=== PATIENT | female | born 1995 | race American Indian/Alaskan Native ===

== ENCOUNTER 2016-12-26 14:50 | Emergency (ER) | payer MEDICAID ==
[2016-12-26 15:48] LABS: Basophils % (Auto) 0.8 % (0.0-1.8); Eosinophils % (Auto) 0.5 % (0.0-4.3); Hematocrit 33.3 % (30.3-42.9); Hemoglobin 11.1 gm/dl (10.1-14.3); Mean Corpuscular HGB Conc 33 % (30-34); Mean Corpuscular Hemoglobin 32 pg (28-32); Mean Corpuscular Volume 95 fl (79-97); Platelet Count 295 K/mm3 (140-440); Red Blood Count 3.51 M/mm3 (3.65-5.03); Red Cell Distribution Width 14.3 % (13.2-15.2); White Blood Count 12.6 K/mm3 (4.5-11.0)
[2016-12-26 16:03] LABS: Alanine Aminotransferase 11 units/L (7-56); Albumin 3.8 g/dL (3.9-5); Albumin/Globulin Ratio 1.2 %; Alkaline Phosphatase 35 units/L (35-129); Anion Gap 17 mmol/L; Bilirubin,Total 0.2 mg/dL (0.1-1.2); Blood Urea Nitrogen 7 mg/dL (7-17); Calcium 8.8 mg/dL (8.4-10.2); Carbon Dioxide 23 mmol/L (22-30); Chloride 101.4 mmol/L (98-107); Glucose 91 mg/dL (65-100); Lipase 35 units/L (13-60); Sodium 137 mmol/L (137-145); Total Protein 6.9 g/dL (6.3-8.2)
--- NOTE | 2016-12-26 17:07 | Emergency Department Report ---
ED Abdominal Pain HPI - General Chief Complaint: Abdominal Pain Stated Complaint: URINATION PAIN/12WKS Time Seen by Provider: 12/26/16 16:59 Source: patient Mode of arrival: Ambulatory Limitations: No Limitations - History of Present Illness Initial Comments: Pt reports pelvic cramping, dysuria, and vaginal discharge x 2 weeks. Reports she is 12 weeks . Denies fevers, vaginal bleeding. MD Complaint: abdominal pain -: Gradual, week(s) (2) Location: suprapubic Severity: mild Quality: cramping Consistency: constant Improves With: nothing Worsens With: nothing Associated Symptoms: denies other symptoms - Related Data LMP Date: 09/27/16 Previous Rx's Medication Instructions Recorded Last Taken Type Vit No.130/Iron/FA 1 each PO QDAY #30 tablet 07/21/16 Unknown Rx [ Tablet] metroNIDAZOLE [Flagyl] 500 mg PO Q12HR #14 tab 12/26/16 Unknown Rx Allergies Allergy/AdvReac Type Severity Reaction Status Date / Time No Known Allergies Allergy Unverified 11/04/14 13:36 ED Review of Systems ROS: Stated complaint: URINATION PAIN/12WKS Other details as noted in HPI Comment: All other systems reviewed and negative Constitutional: denies: chills, fever Eyes: denies: eye pain, eye discharge, vision change ENT: denies: ear pain, throat pain Respiratory: denies: cough, shortness of breath, wheezing Cardiovascular: denies: chest pain, palpitations Endocrine: no symptoms reported Gastrointestinal: abdominal pain. denies: nausea, diarrhea Genitourinary: dysuria, discharge. denies: urgency Musculoskeletal: denies: back pain, joint swelling, arthralgia Skin: denies: rash, lesions Neurological: denies: headache, weakness, paresthesias Psychiatric: denies: anxiety, depression Hematological/Lymphatic: denies: easy bleeding, easy bruising ED Past Medical Hx - Social History Smoking Status: Never Smoker Substance Use Type: Alcohol - Medications Home Medications: Home Medications Medication Instructions Recorded Confirmed Last Taken Type Vit No.130/Iron/FA 1 each PO QDAY #30 tablet 07/21/16 Unknown Rx [ Tablet] metroNIDAZOLE [Flagyl] 500 mg PO Q12HR #14 tab 12/26/16 Unknown Rx ED Physical Exam - General Limitations: No Limitations General appearance: alert, in no apparent distress - Head Head exam: Present: atraumatic, normocephalic - Eye Eye exam: Present: normal appearance - ENT ENT exam: Present: mucous membranes moist - Neck Neck exam: Present: normal inspection - Respiratory Respiratory exam: Present: normal lung sounds bilaterally. Absent: respiratory distress - Cardiovascular Cardiovascular Exam: Present: regular rate, normal rhythm. Absent: systolic murmur, diastolic murmur, rubs, gallop - GI/Abdominal GI/Abdominal exam: Present: soft, normal bowel sounds. Absent: distended, tenderness, guarding, rebound - External exam: Present: normal external exam Speculum exam: Present: vaginal discharge, cervical discharge. Absent: vaginal bleeding Bi-manual exam: Present: normal bi-manual exam, other (chaperoned by Harmony MUNOZ ) . Absent: cervical motion tendernes, adnexal tenderness - Extremities Exam Extremities exam: Present: normal inspection - Back Exam Back exam: Present: normal inspection - Neurological Exam Neurological exam: Present: alert, oriented X3 - Psychiatric Psychiatric exam: Present: normal affect, normal mood - Skin Skin exam: Present: warm, dry, intact, normal color. Absent: rash ED Course Vital Signs 12/26/16 15:15 Temperature 98.7 F Pulse Rate 74 Respiratory 18 Rate Blood Pressure 116/62 O2 Sat by Pulse 100 Oximetry - Reevaluation(s) Reevaluation #1: 12/26/16 20:55 NAD, stable for d/c. Tolerating PO. ED Medical Decision Making - Lab Data Result diagrams: 12/26/16 15:21 12/26/16 15:21 - Radiology Data Radiology results: report reviewed naf - Medical Decision Making Pt with relatively normal exam and workup. Will follow with OB. Return precautions given. - Differential Diagnosis round ligament pain, uti, pid Critical care attestation.: If time is entered above; I have spent that time in minutes in the direct care of this critically ill patient, excluding procedure time. ED Disposition Clinical Impression: Bacterial vaginosis, Pelvic pain affecting Disposition: DISCHARGED TO HOME OR SELFCARE Is pt being admited?: No Condition: Good Instructions: Abdominal Pain (ED), Bacterial Vaginosis (ED) Prescriptions: metroNIDAZOLE [Flagyl] 500 mg PO Q12HR #14 tab Referrals: PRIMARY CARE,MD [Primary Care Provider] - 3-5 Days Forms: STI Treatment and Prevention Time of Disposition: 20:56
[2016-12-26 17:23] LABS: Bilirubin,Urine NEG (Negative); Blood,Urine NEG (Negative); Ketones,Urine NEG (Negative); Leukocyte Esterase,Urine NEG (Negative); Mucus,Urine 3+ /HPF; Nitrite,Urine NEG (Negative); Protein,Urine <15 mg/dL mg/dL (Negative); Urobilinogen,Urine < 2.0 mg/dL (<2.0)
[2016-12-26 17:25] LABS: WBC,Urine < 1.0 /HPF (0.0-6.0)
[2016-12-26] MEDS ORDERED: ROCEPHIN IM ONE (18:15)
[2016-12-26] MEDS ORDERED: XYLOCAINE 1% MPF 5 mL INFILTRATI ONE (18:15)
[2016-12-26] MEDS ORDERED: ZITHROMAX PO ONE (18:15)
[2016-12-26] MEDS ORDERED: REGLAN PO ONE (19:35)
--- NOTE | 2016-12-26 20:43 | Ultrasound Report ---
FINAL REPORT EXAM: US OB \T\lt; = 14 WEEKS FETUS HISTORY: pain TECHNIQUE: Real-time sonography was performed of the gravid uterus transabdominally and images are submitted for interpretation. PRIORS: None. FINDINGS: The uterus appears normal and has a grossly normal appearing gestational sac. There is a normal appearing pole measuring 5.65 centimeters for an estimated gestational age of 12 weeks 2 days. The heart is beating at a rate of 160 beats per minute. Both ovaries are visualized and appear normal. The right ovary measures 3.1 x 1.5 x 1.3 cm and the left measures 4.3 x 2.7 x 2.9 cm. There is a 2.4 cm corpus luteal cyst in the left ovary. IMPRESSION: Single live intrauterine gestation, estimated gestational age 12 weeks 2 days for an estimated date of confinement of 07/08/2017.
[2016-12-26 21:48] VITALS: BP 103/66
== END 2016-12-26 21:50 | disposition home or self-care (01) ==
LOC: ED 14:50
DX: O23.591 Infection of other part of genital tract in pregnancy, first trimester (principal); N76.0 Acute vaginitis; Z3A.12 12 weeks gestation of pregnancy
CPT/HCPCS: 36415; 76801; 80053; 81001; 83690; 84702; 85025; 87210; 87591; 96372; 99284; J0696

== ENCOUNTER 2017-08-19 09:30 | Emergency (ER) | payer MEDICAID ==
[2017-08-19 09:56] VITALS: BP 119/72
--- NOTE | 2017-08-19 11:31 | Emergency Department Report ---
- General Chief Complaint: Pain General Stated Complaint: STREP THROAT/COUGH Time Seen by Provider: 08/19/17 10:59 Source: patient Mode of arrival: Ambulatory Limitations: No Limitations - History of Present Illness Initial Comments: This is a 21-year-old female nontoxic, well nourished in appearance, no acute signs of distress presents to the ED complaining of sore throat with productive cough 2 weeks. Patient stated she was diagnosed with strep throat and receive amoxicillin with no symptoms resolving. Patient also is complaining of chills but denies having fever. Patient denies any chest pain, shortness of breath, numbness, tingling, nausea, vomiting, headache, stiff neck, blurry vision. Patient denies any abdominal pain. Patient describes reductive cough as well as yellow/green mucus production but denies any wheezing. Denies recent travels or long car rides. Denies hemoptysis. Denies calf pain or tenderness. Denies any allergies or past mental history. MD Complaint: cough, sore throat -: Gradual, week(s) (2) Severity: mild Severity scale (0 -10): 7 Quality: other (sensation of swallowing razor blades) Consistency: constant Improves With: nothing Worsens With: nothing Associated Symptoms: chills, sore throat, cough. denies: fever, myalgias, diaphoresis, headache, rhinorrhea, nasal congestion, stiff neck, chest pain, shortness of breath, abdominal pain, nausea, vomiting, diarrhea, dysuria, rash, confusion, right sweats, weight loss, epistaxis, hoarseness, ear pain Treatments Prior to Arrival: none - Related Data Previous Rx's Medication Instructions Recorded Last Taken Type Vit No.130/Iron/Folic 1 each PO QDAY #30 tablet 07/21/16 Unknown Rx [ Tablet] metroNIDAZOLE [Flagyl] 500 mg PO Q12HR #14 tab 12/26/16 Unknown Rx Amoxicillin/Potassium Clav 1 each PO Q12H #20 tablet 08/19/17 Unknown Rx [Augmentin 875-125 Tablet] Nystas/Diphen/Xyl Visc/Mylanta 480 ml MM DAILY #1 udc 08/19/17 Unknown Rx [Magic Mouthwash] Allergies Allergy/AdvReac Type Severity Reaction Status Date / Time No Known Allergies Allergy Unverified 11/04/14 13:36 ED Review of Systems ROS: Stated complaint: STREP THROAT/COUGH Other details as noted in HPI Constitutional: denies: chills, fever Eyes: denies: eye pain, eye discharge, vision change ENT: throat pain. denies: ear pain Respiratory: cough. denies: shortness of breath, wheezing Cardiovascular: denies: chest pain, palpitations Endocrine: no symptoms reported Gastrointestinal: denies: abdominal pain, nausea, diarrhea Genitourinary: denies: urgency, dysuria, discharge Musculoskeletal: denies: back pain, joint swelling, arthralgia Skin: denies: rash, lesions Neurological: denies: headache, weakness, paresthesias Psychiatric: denies: anxiety, depression Hematological/Lymphatic: denies: easy bleeding, easy bruising ED Past Medical Hx - Past Medical History Previous Medical History?: No - Surgical History Past Surgical History?: No - Social History Smoking Status: Never Smoker Substance Use Type: None - Medications Home Medications: Home Medications Medication Instructions Recorded Confirmed Last Taken Type Vit No.130/Iron/Folic 1 each PO QDAY #30 tablet 07/21/16 Unknown Rx [ Tablet] metroNIDAZOLE [Flagyl] 500 mg PO Q12HR #14 tab 12/26/16 Unknown Rx Amoxicillin/Potassium Clav 1 each PO Q12H #20 tablet 08/19/17 Unknown Rx [Augmentin 875-125 Tablet] Nystas/Diphen/Xyl Visc/Mylanta 480 ml MM DAILY #1 udc 08/19/17 Unknown Rx [Magic Mouthwash] ED Physical Exam - General Limitations: No Limitations General appearance: alert, in no apparent distress - Head Head exam: Present: atraumatic, normocephalic, normal inspection - Eye Eye exam: Present: normal appearance, PERRL, EOMI. Absent: scleral icterus, conjunctival injection, nystagmus, periorbital swelling, periorbital tenderness Pupils: Present: normal accommodation - ENT ENT exam: Present: mucous membranes moist, TM's normal bilaterally, normal external ear exam - Expanded ENT Exam Expanded Ear exam: Present: normal external inspection Mouth exam: Present: normal external inspection, tongue normal. Absent: drooling, trismus, muffled voice, tongue elevation, laceration Teeth exam: Present: normal inspection Throat exam: Positive: tonsillar erythema, tonsillomegaly (2+), tonsillar exudate, other (No abscess or swelling. Uvula midline.). Negative: R peritonsillar mass, L peritonsillar mass - Neck Neck exam: Present: normal inspection, full ROM. Absent: tenderness, meningismus, lymphadenopathy, thyromegaly - Respiratory Respiratory exam: Present: normal lung sounds bilaterally. Absent: respiratory distress, wheezes, rales, rhonchi, stridor, chest wall tenderness, accessory muscle use, decreased breath sounds, prolonged expiratory - Cardiovascular Cardiovascular Exam: Present: regular rate, normal rhythm, normal heart sounds. Absent: systolic murmur, diastolic murmur, rubs, gallop - GI/Abdominal GI/Abdominal exam: Present: soft, normal bowel sounds. Absent: distended, tenderness, guarding, rebound, rigid, diminished bowel sounds - Rectal Rectal exam: Present: deferred - Extremities Exam Extremities exam: Present: normal inspection, full ROM, normal capillary refill. Absent: tenderness, pedal edema, joint swelling, calf tenderness - Back Exam Back exam: Present: normal inspection, full ROM. Absent: tenderness, CVA tenderness (R), CVA tenderness (L), muscle spasm, paraspinal tenderness, vertebral tenderness, rash noted - Neurological Exam Neurological exam: Present: alert, oriented X3, CN II-XII intact, normal gait, reflexes normal - Psychiatric Psychiatric exam: Present: normal affect, normal mood - Skin Skin exam: Present: warm, dry, intact, normal color. Absent: rash ED Course Vital Signs 08/19/17 08/19/17 09:55 12:03 Temperature 98.3 F Pulse Rate 112 H 92 H Respiratory 20 Rate Blood Pressure 119/72 [Left] O2 Sat by Pulse 98 Oximetry - Reevaluation(s) Reevaluation #1: 08/19/17 11:34 Patient is speaking in full sentences with no signs of distress noted. ED Medical Decision Making - Radiology Data Radiology results: report reviewed interpreted by me: Dictated by radiologist Normal examination - Medical Decision Making 21-year-old female that presents with upper respiratory infection and tonsillitis with exudate. Due to patient's receiving amoxicillin with no relief , I will prescribe Augmentin at discharge. Patient also received magic mouthwash. Chest x-ray, Influenza and strep and has been obtained with negative results. Patient was instructed to follow-up with a primary care doctor in 3-5 days or if symptoms worsen and continue return to emergency room as soon as possible possible. At time time of discharge, the patient does not seem toxic or ill in appearance. No acute signs of distress noted. Patient agrees to discharge treatment plan of care. No further questions noted by the patient. Critical care attestation.: If time is entered above; I have spent that time in minutes in the direct care of this critically ill patient, excluding procedure time. ED Disposition Clinical Impression: Tonsillar exudate Upper respiratory infection Qualifiers: URI type: unspecified URI Qualified Code(s): J06.9 - Acute upper respiratory infection, unspecified Disposition: DC- TO HOME OR SELFCARE Is pt being admited?: No Does the pt Need Aspirin: No Condition: Stable Instructions: Amoxicillin/Clavulanate Potassium (By mouth), Upper Respiratory Infection (ED), Tonsillitis (ED) Additional Instructions: Follow-up with a primary care doctor in 3-5 days or if symptoms worsen and continue return to emergency room as soon as possible possible. Prescriptions: Amoxicillin/Potassium Clav [Augmentin 875-125 Tablet] 1 each PO Q12H #20 tablet Nystas/Diphen/Xyl Visc/Mylanta [Magic Mouthwash] 480 ml MM DAILY #1 [facility] [place] Referrals: PRIMARY CAREMD [Primary Care Provider] - 3-5 Days STACY DAIGLE MD [Staff Physician] - 3-5 Days [facility] [Outside] - 3-5 Days [facility] [place] [Outside] - 3-5 Days Forms: Work/School Release Form(ED)
--- NOTE | 2017-08-19 12:01 | XRay Report ---
CHEST 2 VIEWS INDICATION: Cough with mucus production, shortness of breath. COMPARISON: None similar. FINDINGS: PA and lateral chest radiographs demonstrate normal cardiomediastinal silhouette. Clear lungs. Intact bones. CONCLUSION: No acute disease in the chest. Thank you for the opportunity to participate in this patient's care.
== END 2017-08-19 12:23 | disposition home or self-care (01) ==
LOC: ED 09:30
DX: J06.9 Acute upper respiratory infection, unspecified (principal); J03.90 Acute tonsillitis, unspecified
CPT/HCPCS: 71020; 87116; 87400; 87430